=== PATIENT | female | born 1935 | race Caucasian/White ===

== ENCOUNTER 2016-08-14 06:42 | Observation (INO) | payer OTHER ==
[~2016-08-14] VITALS: Ht 154.9 cm; Wt 57.8 kg
--- NOTE | ~2016-08-14 | D ---
[facility] [place] [address] DISCHARGE SUMMARY Name: NEDA PETTY Room #: 214-P [facility] Vandana Turner#: [id number] Admission: 08/14/16 Attend Phys: Rd Padgett MD Discharge: 08/15/16 Date of : 35 Report #: [id number] THIS REPORT FOR: //name// CC: GERARD Padgett DISCHARGE DIAGNOSIS: Atrial tachycardia. PROCEDURES PERFORMED: SVT ablation. HISTORY: The patient is an 81-year-old female with a history of SVT that has failed medical therapy who is here for an ablation. She underwent successful ablation of a focal atrial tachycardia arising from the superior right atrium, specifically along the anterior lateral aspect of the atrium. She was rendered noninducible post-ablation. HOSPITAL COURSE: The patient was monitored overnight in the hospital. On telemetry, she was in sinus rhythm. She had 1 brief run of atrial tachycardia that was 5 beats in duration. She did well, otherwise. She denied any chest pain, shortness of breath, PND, orthopnea, or other symptoms. Her physical exam was within normal limits and her vitals were stable. As such, she was deemed stable for discharge home. Discharge instructions were reviewed. We will discontinue the beta cesar. She will continue other home medications. I recommended aspirin 81 mg a day. She will follow up with me in 3 months. <ELECTRONICALLY SIGNED> By: Rd Padgett MD 08/15/[id number] Padgett MD /alex
--- NOTE | ~2016-08-14 | P ---
[facility] [place] [address] PROCEDURE REPORT Name: NEDA PETTY [id number] Admission: 08/14/16 Attend Phys: Rd Padgett MD Discharge: 08/15/16 Date of : 35 Report #: [id number] THIS REPORT FOR: //name// CC: GERARD Padgett PREOPERATIVE DIAGNOSIS: Supraventricular tachycardia. POSTOPERATIVE DIAGNOSIS: Right-sided atrial tachycardia arising from the superior anterior lateral aspect of the right atrium. PROCEDURES PERFORMED: SVT ablation, 3D mapping and EP study with isoproterenol confusion. HISTORY OF PRESENT ILLNESS: The patient is an 81-year-old female with a history of recurrent SVT, who is here for EP study and ablation. ANESTHESIA: The patient underwent MAC anesthesia with no anesthesia related complications. PROCEDURE: The patient underwent informed consent. We discussed the details of the procedure including the risks, which include but not limited to bleeding, vascular damage, cardiac perforation, stroke, UT as well as damage to the deering conduction system requiring permanent pacemaker. She understood these risks and is willing to proceed. As such, she is brought to the EP laboratory in a fasting and sedated state and prepped and draped in a sterile fashion. Next, I injected lidocaine into the bilateral groin regions and obtained access to the bilateral femoral veins times 2 placing an 8 and 6-Finnish short sheath in the right femoral vein and a 6 and 7-Finnish short sheath in the left femoral vein using the modified Seldinger technique. Next, catheters were positioned using fluoroscopy. A decapolar catheter was placed easily into the coronary sinus and 3 quadripolar catheters were placed at the HRA, His, and RV positions respectively. An EP study was performed. At baseline, the patient was in sinus rhythm with sinus cycle length of 960 milliseconds, MS interval 240 milliseconds, QRS duration 80 milliseconds, QT interval 422 milliseconds, AH interval 170 milliseconds, and HV interval 42 milliseconds. Next, ventricular pacing was performed and there was no evidence of VA conduction, pacing at 650 milliseconds. Next, atrial burst pacing was performed and AV block was noted at 400 milliseconds and atrial ERP was noted at 270 milliseconds at a [address] cycle length. There was no jumps and there were no AV ashish echoes. Next, isoproterenol infusion was performed and AV block was noted at 300 milliseconds and atrial ERP was noted at 240 milliseconds at a [address] cycle length. Again, there was no jumps and there was no echoes. Ventricular pacing was again performed and VA block was now 380 milliseconds. VA conduction was both midline and decremental. Next, [facility] [address] [place] [address] PROCEDURE REPORT Name: MALINDANEDA Room #: 214-P [facility] M.R.#: [id number] Admission: 08/14/16 Attend Phys: Rd Padgett MD Discharge: 08/15/16 Date of : 35 Report #: [id number] continued to try to induce tachycardia. Eventually with single atrial single atrial extrastimuli delivered at 340 milliseconds at a [address] cycle length, SVT was induced. This was a high to low tachycardia earliest atrial electrogram was noted at the HRA catheter, which was actually 60 milliseconds P-wave. The P-wave morphology was similar to a sinus P-wave morphology with upper right waves in 2, 3 aVF. Ventricular pacing easily dissociated the A from the V. As such, diagnosis of an atrial tachycardia was made. 3D mapping and ablation: Next, I removed by HRA catheter and created and then placed a 4 mm Biosense Worrell bidirectional catheter into the right atrium. I created a detailed 3D geometry of the right atrium and I tagged the His bundle. I performed an activation map while in tachycardia and this was clearly a focal atrial tachycardia arising from the anterior lateral aspect of the right atrium at the superior location. Next, ablation was performed at 50 davis and 55 degrees at this site. There was acceleration of the tachycardia up to 180 beats per minute. Then, there was termination of the tachycardia. Additional ablation was performed somewhat more laterally to where the ablation terminated and again there was acceleration of this atrial tachycardia at this site and then eventual termination. I performed consolidation ablation throughout this region to ensure that this area was rendered noninducible. Prior to ablation at this site, I did perform high output pacing from the ablation catheter to rule out any phrenic nerve issues. There was clearly no phrenic nerve capture at any of these ablation sites. POST-ABLATION FINDINGS: Post-ablation, the patient was still on isoproterenol, which we continued throughout the ablation as this was necessary to keep this arrhythmia going on. Post-ablation AV block was noted at 310 milliseconds. I performed a single atrial extrastimuli for 30-40 minutes, which would easily induce the tachycardia previously and that was rendered noninducible. Isoproterenol was discontinued and we continued pacing and AV block was 340 milliseconds. Post-ablation, the patient was in sinus rhythm with a sinus cycle length of 620 milliseconds, MS interval 220 milliseconds, QRS duration 85 milliseconds, QT interval 350 milliseconds. As such, the patient was noninducible. Of note, when we did pace the atrium, the patient did have periods of left bundle branch ablation. As such, all catheters and sheaths were pulled. Hemostasis was obtained and the patient awoke neurologically and hemodynamically intact with no complications and no significant bleeding. CONCLUSIONS: 1. Successful ablation of a focal atrial tachycardia arising from the superior right atrium at a anterior lateral loci. 2. Normal SA ashish function. 3. Normal AV ashish function. [facility] [address] [place] [address] PROCEDURE REPORT Name: NEDA PETTY Room #: 214-P [facility] Vandana M.R.#: [id number] Admission: 08/14/16 Attend Phys: Rd Padgett MD Discharge: 08/15/16 Date of : 35 Report #: [id number] 4. Normal His-Purkinje function. 5. No other inducible arrhythmias on or off isoproterenol. <ELECTRONICALLY SIGNED> By: Rd Padgett MD 08/15/[id number] Padgett MD /nt
[2016-08-14] MEDS ORDERED: TOPROL XL25 MG PO (07:01)
[2016-08-14] MEDS ORDERED: ALIGN4 MG PO (07:01)
[2016-08-14] MEDS ORDERED: ATELVIA35 MG PO (07:01)
[2016-08-14] MEDS ORDERED: BIOTIN5000 MCG PO (07:02)
[2016-08-14] MEDS ORDERED: FISH OIL OMEGA1 EAC2 PO (07:02)
[2016-08-14] MEDS ORDERED: CALCIUM 500 +1 EAC5 PO (07:02)
[2016-08-14] MEDS ORDERED: WOMEN'S DAILY1 EAC2 PO (07:02)
[2016-08-14] MEDS ORDERED: VITAMIN C1000 M1 PO (07:03)
[2016-08-14 07:17] VITALS: BP 158/74
[2016-08-14 07:44] LABS: ABSOLUTE NEUTROPHILS 3.7 thou/uL (1.4-8.2); BASOPHILS 0.4 % (0.0-2.0); EOSINOPHILS 1.8 % (0.0-3.0); HEMATOCRIT 36.3 % (37.0-47.0); HEMOGLOBIN 12.2 gm/dL (12.0-15.0); LYMPHOCYTES 26.8 % (24.0-44.0); MANUAL DIFF NO; MCH 30.7 pg (26.0-34.0); MCHC 33.5 g/dL (28.0-37.0); MCV 91.6 fL (80.0-100.0); MONOCYTES 7.2 % (1.0-8.0); PLATELET COUNT 311 thou/uL (150-400); POLYS 63.8 % (36.0-66.0); RBC 3.96 mil/uL (4.20-5.00); RDW 13.5 % (10.5-14.5); WBC 5.9 thou/uL (4.0-11.0)
[2016-08-14 07:56] LABS: APTT 27.7 Seconds (24.5-32.8); CALCIUM 9.1 mg/dL (8.5-10.1); CREATININE 0.8 mg/dL (0.6-1.0); POTASSIUM 3.6 mmol/L (3.5-5.1); PROTIME 9.8 Seconds (9.3-11.4)
[2016-08-14 08:00] LABS: ALBUMIN 4.1 g/dL (3.4-5.0); TOTAL BILIRUBIN 0.7 mg/dL (<0.1-1.0); TOTAL PROTEIN 7.6 g/dL (6.4-8.2)
[2016-08-14 13:20] VITALS: BP 122/63
[2016-08-14 16:15] VITALS: BP 137/67
[2016-08-14 19:27] VITALS: BP 114/60
[2016-08-15 03:50] VITALS: BP 116/61
[2016-08-15 07:35] VITALS: BP 136/64
[2016-08-15 11:04] VITALS: BP 136/64
[2016-08-15 11:28] VITALS: BP 136/64
== END 2016-08-15 11:35 | disposition home or self-care (01) ==
LOC: CATH 06:42 → OR 13:01 → 2N 13:22
PROVIDERS: Internal Medicine Cardiovascular Disease
DX: I47.1 Supraventricular tachycardia (principal); F41.9 Anxiety disorder, unspecified; K21.9 Gastro-esophageal reflux disease without esophagitis; K58.9 Irritable bowel syndrome, unspecified; I10 Essential (primary) hypertension; Z79.899 Other long term (current) drug therapy
CPT/HCPCS: 62110; 62900; 70005